=== PATIENT | male | born 1995 | race Caucasian/White ===

== ENCOUNTER 2021-04-12 04:57 | Emergency (ER) | payer OTHER ==
[~2021-04-12] VITALS: Ht 180.3 cm; Wt 79.0 kg
[2021-04-12] MEDS ORDERED: IBUPROFEN 400MG TABLET PO ONE (05:15)
[2021-04-12] MEDS ORDERED: ACETAMINOPHEN 325MG TABLET PO ONE (05:15)
[2021-04-12] MEDS ORDERED: BACITRACIN ZINC OINT UDPKT TOP ONE (05:15)
[2021-04-12] MEDS ORDERED: TETANUS, DIPHTHERIA, PERTUSSIS VAC/PF 0.5ML (>10YR OLD) IM ONE (05:15)
[2021-04-12] MEDS ORDERED: LIDOCAINE HCL/EPINEPHRINE 1%-EPI 1:100,000 20 ML VIAL INFIL ONE (05:15)
[2021-04-12] MEDS ORDERED: AMOXICILLIN/POTASSIUM CLAVULANATE 875/125MG TAB PO ONE (05:15)
[2021-04-12] MEDS ORDERED: AMOX-424 MT (05:39)
[2021-04-12] MEDS ORDERED: IBUP-2028 MT (05:39)
[2021-04-12] MEDS ORDERED: ACET-2708 MT (05:39)
[2021-04-12 06:51] VITALS: BP 128/67
== END 2021-04-12 06:54 ==
LOC: ER 05:11
DX: S81.852A Open bite, left lower leg, initial encounter (principal); W54.0XXA Bitten by dog, initial encounter; Y93.89 Activity, other specified; Y92.89 Other specified places as the place of occurrence of the external cause; Y99.8 Other external cause status; Z79.899 Other long term (current) drug therapy
CPT/HCPCS: 12004; 73590; 90471; 90715; 99284; J3490; Z7610